=== PATIENT | male | born 1965 | race Caucasian/White ===

== ENCOUNTER 2020-08-19 17:35 | Emergency (ER) | payer BC ==
[2020-08-19] MEDS ORDERED: Atropine 0.1 MG/ML 10 ML Syringe ONE ×4 (17:44)
[2020-08-19] MEDS ORDERED: Atropine 0.4 MG/ML SDV ONE (17:44)
[2020-08-19] MEDS ORDERED: Lidocaine 1% 50 MG/5 ML Syringe ONE ×2 (17:44)
[2020-08-19] MEDS ORDERED: Amiodarone 150 MG/3 ML SDV ONE ×3 (17:44)
[2020-08-19] MEDS ORDERED: EPINEPHrine 1:10,000 1 MG/10 ML Syringe ONE ×10 (17:44→18:44)
[2020-08-19] MEDS ORDERED: Sodium Bicarbonate 8.4% 50 MEQ/50 ML Syringe ONE ×2 (17:44)
[2020-08-19] MEDS ORDERED: Magnesium Sulfate/Water 2 GM/50 ML BAG ONE (18:41)
--- NOTE | 2020-08-19 19:20 | EDM.PDOC ---
ED HPI GENERAL MEDICAL PROBLEM - General Chief Complaint: CPR in Progress Stated Complaint: cpr in progress Time Seen by Provider: 08/19/20 17:35 Source of Information: Reports: EMS History Limitations: Reports: Other (CPR in progress) - History of Present Illness Onset: Today, Sudden Context: Reports: Other (Moving furniture and collapsed) ED ROS GENERAL - Review of Systems Review Of Systems: Unable To Obtain (CPR in progress) Reason Not Obtained: CPR in progress ED EXAM, CPR - Physical Exam Exam: See Below General Appearance: Other (CPR in progress) Comments: See code sheet summary Course - Orders/Labs/Meds Meds: Medications Discontinued Medications Generic Name Dose Route Start Last Admin Trade Name Freq PRN Reason Stop Dose Admin Epinephrine HCl Confirm 08/19/20 18:40 Epinephrine 1:10,000 Administered 08/19/20 18:41 Dose 1 mg .ROUTE .STK-MED ONE Epinephrine HCl Confirm 08/19/20 18:44 Epinephrine 1:10,000 Administered 08/19/20 18:45 Dose 1 mg .ROUTE .STK-MED ONE Magnesium Sulfate Confirm 08/19/20 18:41 Magnesium Sulfate In Water 2 Gm/50 Ml Administered 08/19/20 18:42 Dose 2 gm in 50 mls @ as directed .ROUTE .STK-MED ONE - Re-Assessments/Exams Free Text/Narrative Re-Assessment/Exam: 08/19/20 19:20 See code sheet summary Pt given multiple drugs including Epi, Atropine, Amiodarone, Bicab, Mg, Lidocaine, Epi drip and Amiodarone drip Pt intubated [facility] present and [place] [facility] present Pt given multiple shocks for Vfib Code called at 1906 after discussion with family Departure - Departure Time of Disposition: 19:30 Disposition: 20 Preliminary Cause of *Q: Cardiac Arrest Clinical Impression: Cardiac arrest - Discharge Information Referrals: PCP,None [Primary Care Provider] -
[2020-08-19 19:32] LABS: PTT,PARTIAL THROMBOPLSTIN TIME 36.8 SEC (24.5-32.8)
[2020-08-19 19:33] LABS: CHLORIDE,CL 103 mmol/L (98-107); SODIUM,NA 142 mmol/L (136-145)
== END 2020-08-19 23:15 | disposition expired ==
LOC: LL.ED 17:35
DX: I46.9 Cardiac arrest, cause unspecified (principal)
CPT/HCPCS: 31500; 36415; 80053; 82550; 82553; 83605; 83735; 83880; 84484; 85025; 85379; 85610; 85730; 92950; 99285; 99285-25; J0171; J0282; J0461; J7030